=== PATIENT | female | born 1955 | race Caucasian/White ===

== ENCOUNTER 2024-07-17 19:44 | Inpatient (IN) | payer MEDICARE, MEDICAID ==
[~2024-07-17] VITALS: Ht 165.1 cm; Wt 87.5 kg
[2024-07-17 19:47] VITALS: O2SAT 96
[2024-07-17] MEDS: MORPHINE SULFATE 4 MG/ML INJ (FOR IV/IM USE) IV STA (20:24)
[2024-07-17] MEDS: ONDANSETRON HCL 4MG/2ML INJ IV STA (20:24)
[2024-07-17 20:25] LABS: CHLORIDE 103 mEq/L (98-107); DIFFERENTIAL COMMENT 1; HEMATOCRIT. 30.1 % (36.0-48.0); HEMOGLOBIN. 9.7 g/dL (12.0-16.0); MEAN CORPUSCULAR HGB CONC 32.2 g/dL (31.0-37.0); MEAN CORPUSCULAR VOLUME 89.9 fL (81.0-99.0); MEAN PLATELET VOLUME 8.2 fl (7.4-10.4); PLATELET 104 x1000/uL (130-400); POTASSIUM 4.9 mEq/L (3.5-5.1); RED BLOOD CELL COUNT 3.34 mill/uL (4.2-5.4); RED CELL DISTRIBUTION WIDTH 23.6 % (11.6-14.6); SODIUM 131 mEq/L (136-145); WHITE BLOOD COUNT 4.8 x1000/uL (4.5-11.0)
[2024-07-17 20:26] LABS: CALCIUM 9.3 mg/dL (8.7-10.4); CARBON DIOXIDE 25 mEq/L (21-32)
[2024-07-17 20:31] LABS: CREATININE 0.7 mg/dL (0.6-1.0); GLUCOSE 279 mg/dL (70-105); INR 1.1; PROTHROMBIN TIME 12.2 sec (9.6-11.0); UREA NITROGEN BLOOD 11 mg/dL (9-23)
[2024-07-17 20:33] LABS: ALANINE AMINOTRANSFERASE 54 IU/L (10-49); ALBUMIN 3.5 g/dL (3.2-4.8); ASPARTATE AMINOTRANSFERASE 91 IU/L (<34); BILIRUBIN DIRECT 0.3 mg/dL (<=3.0); BILIRUBIN TOTAL 0.9 mg/dL (0.1-1.0)
[2024-07-17 20:34] LABS: PROTEIN TOTAL 6.9 g/dL (6.0-8.3); TROPONIN I HIGH SENSITIVITY 4 ng/L (3.0-34)
[2024-07-17 21:00] LABS: MICROCYTOSIS 1+; PLATELET ESTIMATE NORMAL
[2024-07-17 21:16] LABS: CLARITY URINE CLEAR (CLEAR); COLOR URINE YELLOW (YELLOW); GLUCOSE URINE 3+ (NEGATIVE); KETONES URINE NEGATIVE (NEGATIVE); LEUKOCYTE ESTERASE URINE TRACE (NEGATIVE); NITRITE URINE POSITIVE (NEGATIVE); OCCULT BLOOD URINE 1+ (NEGATIVE); PROTEIN URINE NEGATIVE (NEGATIVE); SPECIFIC GRAVITY URINE 1.022 (1.005-1.030)
[2024-07-17 21:36] LABS: BACTERIA URINE 3+; SQUAMOUS EPITHELIAL CELL URINE RARE /lpf (RARE/1+); WBC URINE 0-2 /hpf (0-2)
[2024-07-17] MEDS: FUROSEMIDE 40MG/4ML VIAL IVP ONE (22:23)
[2024-07-17] MEDS ORDERED: IPRATROPIUM/ALBUTEROL 0.5-3(2.5)MG/3ML NEB HHN PRN (23:00)
[2024-07-17] MEDS ORDERED: ZOLPIDEM TARTRATE 5MG TABLET PO PRN (23:00)
[2024-07-17] MEDS ORDERED: DOCUSATE SODIUM 100MG CAPSULE PO PRN (23:00)
[2024-07-17] MEDS ORDERED: CLONIDINE 0.1MG TABLET PO PRN (23:00)
[2024-07-17] MEDS ORDERED: ACETAMINOPHEN 325MG TABLET PO PRN ×2 (23:00)
[2024-07-17] MEDS ORDERED: ONDANSETRON HCL 4MG/2ML INJ IV PRN (23:00)
[2024-07-17] MEDS ORDERED: GUAIFENESIN 200MG/10ML SUGAR FREE UDC PO PRN (23:00)
[2024-07-17] MEDS ORDERED: MAGNESIUM/ALUMINUM HYDROXIDE/SIMETHICONE 30ML UDC PO PRN (23:00)
[2024-07-17 23:41] LABS: IRON 29 ug/dL (50-170)
[2024-07-17 23:44] LABS: PHOSPHORUS 2.6 mg/dL (2.5-4.9)
[2024-07-17 23:45] LABS: TOTAL IRON BINDING CAPACITY 335 ug/dl (250-425)
[2024-07-17 23:47] LABS: T4 FREE 0.97 ng/dL (0.89-1.76); THYROID STIMULATING HORMONE 3.07 uIU/mL (0.55-4.78)
[2024-07-18] VITALS: BP 115/44; PULSE 81; RESP 20; TEMP 39.3; O2SAT 100
[2024-07-18 01:00] VITALS: BP 115/44; PULSE 81; RESP 20; TEMP 38.9
[2024-07-18] MEDS: ENOXAPARIN 80MG/0.8ML SYR SUBCUT SCH (01:19)
[2024-07-18] MEDS: TRAMADOL 50MG TABLET PO PRN (01:20)
[2024-07-18] MEDS: LEVOFLOXACIN 750MG PREMIX 150 ML IV SCH (01:55)
[2024-07-18 04:00] VITALS: BP 94/42; PULSE 77; RESP 19; TEMP 37.1; O2SAT 100
[2024-07-18 07:03] LABS: HEMATOCRIT. 28.9 % (36.0-48.0); HEMOGLOBIN. 9.2 g/dL (12.0-16.0); MEAN CORPUSCULAR HEMOGLOBIN 28.3 pg (28.0-32.0); MEAN CORPUSCULAR VOLUME 88.4 fL (81.0-99.0); MEAN PLATELET VOLUME 8.2 fl (7.4-10.4); PLATELET 91 x1000/uL (130-400); RED BLOOD CELL COUNT 3.27 mill/uL (4.2-5.4); RED CELL DISTRIBUTION WIDTH 23.4 % (11.6-14.6)
[2024-07-18 07:09] LABS: DIFFERENTIAL COMMENT 1
[2024-07-18 07:33] LABS: CALCIUM 8.6 mg/dL (8.7-10.4); CARBON DIOXIDE 24 mEq/L (21-32); CHLORIDE 101 mEq/L (98-107); POTASSIUM 4.3 mEq/L (3.5-5.1); SODIUM 134 mEq/L (136-145)
[2024-07-18 07:39] LABS: CREATININE 0.8 mg/dL (0.6-1.0); GLUCOSE 178 mg/dL (70-105); TRIGLYCERIDE 60 mg/dL (0-150); UREA NITROGEN BLOOD 11 mg/dL (9-23)
[2024-07-18 07:40] LABS: LDL CHOLESTEROL 69 mg/dL (5-100)
[2024-07-18 07:41] LABS: CHOLESTEROL 131 mg/dL (<200); HDL CHOLESTEROL 47 mg/dL (>65)
[2024-07-18 08:00] VITALS: BP 117/58; PULSE 74; RESP 16; TEMP 36.4; O2SAT 100
[2024-07-18] MEDS: FUROSEMIDE 40MG/4ML VIAL IVP SCH (08:25)
[2024-07-18] MEDS: FAMOTIDINE 20MG/2ML VIAL IV SCH (08:25)
[2024-07-18] MEDS: SPIRONOLACTONE 12.5MG TABLET PO SCH (09:09)
[2024-07-18] MEDS: FERROUS SULFATE 300MG/5ML UDC PO SCH (09:10)
[2024-07-18] MEDS ORDERED: NALOXONE HCL 0.4MG/ML VIAL IV PRN (09:15)
[2024-07-18] MEDS: MORPHINE SULFATE 2 MG/ML INJ (NOT FOR IM USE) IV PRN (09:18)
[2024-07-18 09:25] LABS: HEPATITIS B SURFACE ANTIGEN NEGATIVE (Negative)
[2024-07-18 09:46] LABS: HEPATITIS C AB NON REACTIVE (Neg) (Negative)
[2024-07-18 12:00] VITALS: BP 101/71; PULSE 101; RESP 18; TEMP 36.1; O2SAT 100
[2024-07-18] MEDS ORDERED: OMEP10CA5 MT (12:37)
[2024-07-18] MEDS ORDERED: GLIP10TA17 MT (12:37)
[2024-07-18] MEDS ORDERED: AZAT50TA24 MT (12:37)
[2024-07-18] MEDS ORDERED: CARV3.1242 MT (12:37)
[2024-07-18] MEDS ORDERED: DABI150C MT (12:37)
[2024-07-18] MEDS ORDERED: FURO-152 MT (12:37)
[2024-07-18] MEDS ORDERED: FERR325T6 MT (12:37)
[2024-07-18] MEDS ORDERED: ASCO-339 MT (12:37)
[2024-07-18] MEDS ORDERED: LISI20TA31 MT (12:37)
[2024-07-18] MEDS ORDERED: PRED5TAB MT (12:37)
[2024-07-18] MEDS ORDERED: METF-414 MT (12:37)
[2024-07-18] MEDS ORDERED: SIMV-43 MT (12:37)
[2024-07-18] MEDS: PREDNISONE 5MG TABLET PO SCH (13:00)
[2024-07-18 15:05] LABS: NUCLEATED RED BLOOD CELLS 1 /100 WBC
[2024-07-18 15:06] LABS: GIANT PLATELETS 1+; PLATELET ESTIMATE SLIGHTLY DECREASED
[2024-07-18] MEDS ORDERED: DEXTROSE 50% WATER 50ML SYRINGE IV PRN (16:45)
[2024-07-18] MEDS: BLOOD SUGAR DIAGNOSTIC STRIP TEST SCH (17:20)
[2024-07-18] MEDS: INSULIN LISPRO 100 UNITS/ML SUBCUT SCH (17:50)
[2024-07-18 19:54] LABS: HEPATITIS B SURFACE ANTIGEN NEGATIVE (Negative)
[2024-07-18 20:00] VITALS: BP 103/30; PULSE 70; RESP 18; TEMP 36.4; O2SAT 96
[2024-07-18 20:15] LABS: HEPATITIS A AB IGM NEGATIVE (Negative); HEPATITIS B CORE AB IGM NEGATIVE (Negative)
[2024-07-18 20:16] LABS: HEPATITIS C AB NON REACTIVE (Neg) (Negative)
[2024-07-19] VITALS: BP 99/46; PULSE 69; RESP 18; TEMP 36.1; O2SAT 96
[2024-07-19] MEDS: CEFTRIAXONE 1GM/50ML 50 ML IV SCH (00:17)
[2024-07-19 06:50] LABS: CHLORIDE 100 mEq/L (98-107); SODIUM 134 mEq/L (136-145)
[2024-07-19 06:51] LABS: CALCIUM 8.6 mg/dL (8.7-10.4); CARBON DIOXIDE 26 mEq/L (21-32)
[2024-07-19 06:56] LABS: CREATININE 0.7 mg/dL (0.6-1.0); GLUCOSE 143 mg/dL (70-105)
[2024-07-19 06:57] LABS: UREA NITROGEN BLOOD 10 mg/dL (9-23)
[2024-07-19 07:18] LABS: HEMATOCRIT. 27.6 % (36.0-48.0); HEMOGLOBIN. 8.9 g/dL (12.0-16.0); MEAN CORPUSCULAR HEMOGLOBIN 28.6 pg (28.0-32.0); MEAN CORPUSCULAR HGB CONC 32.2 g/dL (31.0-37.0); MEAN CORPUSCULAR VOLUME 88.8 fL (81.0-99.0); MEAN PLATELET VOLUME 8.3 fl (7.4-10.4); PLATELET 100 x1000/uL (130-400); RED BLOOD CELL COUNT 3.12 mill/uL (4.2-5.4); RED CELL DISTRIBUTION WIDTH 23.2 % (11.6-14.6); WHITE BLOOD COUNT 5.3 x1000/uL (4.5-11.0)
[2024-07-19 08:00] VITALS: BP 109/40; PULSE 63; RESP 16; RESP 18; TEMP 36.4; O2SAT 97
[2024-07-19 09:04] LABS: DIFFERENTIAL COMMENT 1
[2024-07-19 09:09] VITALS: BP 109/40; PULSE 63; RESP 18
[2024-07-20 08:08] LABS: ANISOCYTOSIS 3+; PLATELET ESTIMATE DECREASED
== END 2024-07-19 10:05 | disposition left against medical advice (07) | DRG 291 ==
LOC: ER 19:44 → 6WST 22:17 → ER 23:03
PROVIDERS: ADMIT Internal Medicine; ATTEND Internal Medicine
DX: I11.0 Hypertensive heart disease with heart failure (principal); J96.01 Acute respiratory failure with hypoxia; K72.00 Acute and subacute hepatic failure without coma; N39.0 Urinary tract infection, site not specified; E87.1 Hypo-osmolality and hyponatremia; R18.8 Other ascites; I50.9 Heart failure, unspecified; K72.10 Chronic hepatic failure without coma; E11.9 Type 2 diabetes mellitus without complications; G89.29 Other chronic pain; D69.59 Other secondary thrombocytopenia; D50.9 Iron deficiency anemia, unspecified; Z53.29 Procedure and treatment not carried out because of patient's decision for other reasons; M54.50 Low back pain, unspecified; F10.90 Alcohol use, unspecified, uncomplicated; Y90.9 Presence of alcohol in blood, level not specified; K74.60 Unspecified cirrhosis of liver; M35.9 Systemic involvement of connective tissue, unspecified; Z79.899 Other long term (current) drug therapy; Z79.84 Long term (current) use of oral hypoglycemic drugs; Z86.718 Personal history of other venous thrombosis and embolism; Z90.49 Acquired absence of other specified parts of digestive tract
CPT/HCPCS: 36415; 71045; 74176; 80048; 80061; 80076; 81003; 82728; 82962; 83036; 83540; 83550; 83735; 83880; 83930; 84100; 84145; 84439; 84443; 84484; 85025; 85379; 86705; 86709; 87340; 93005; 93970; 99285; J0696; J1650; J1815; J1940; J1956; J2270; J2405; J3490; J7512